=== PATIENT | female | born 1980 | race Caucasian/White ===

== ENCOUNTER 2022-03-24 16:34 | Inpatient (IN) | payer BC ==
[~2022-03-24] VITALS: Ht 162.6 cm; Wt 68.2 kg
[2022-03-24 18:11] LABS: BASOPHILS # (AUTO) 0.1 X10'3 (0-0.2); BASOPHILS % (AUTO) 1.1 % (0-1); EOSINOPHILS % (AUTO) 0.7 % (0-6); HEMATOCRIT 34.6 % (35.0-45.0); HEMOGLOBIN 11.9 g/dl (12.0-16.0); LYMPHOCYTES # (AUTO) 0.7 X10'3 (1.1-4.8); LYMPHOCYTES % (AUTO) 9.9 % (21-51); MEAN CORPUSCULAR HEMOGLOBIN 36.3 PG (27.0-31.0); MEAN CORPUSCULAR HGB CONC 34.3 g/dL (33.0-36.5); MEAN CORPUSCULAR VOLUME 105.7 FL (78-98); MEAN PLATELET VOLUME 8.9 FL (7.4-10.4); MONOCYTES # (AUTO) 0.6 X10'3 (0-0.9); MONOCYTES % (AUTO) 9.6 % (2-12); NEUTROPHILS # (AUTO) 5.2 X10'3 (1.8-7.7); NEUTROPHILS % (AUTO) 78.7 % (42-75); PLATELET COUNT 132 X10'3 (140-440); RED BLOOD COUNT 3.27 X10'6 (4.20-5.60); RED CELL DISTRIBUTION WIDTH 15.6 % (11.5-14.5); WHITE BLOOD COUNT 6.6 X10'3 (4.5-11.0)
[2022-03-24 18:27] LABS: ALANINE AMINOTRANSFERASE 104 U/L (12-78); ALBUMIN 3.1 G/DL (3.4-5.0); ALKALINE PHOSPHATASE 282 IU/L (46-116); ANION GAP 14 (8-16); ASPARTATE AMINO TRANSFERASE 197 U/L (10-37); BILIRUBIN,TOTAL 7.7 MG/DL (0.1-1.0); BLOOD UREA NITROGEN 5 MG/DL (7-18); BUN/CREATININE RATIO 6.5 (6.6-38.0); CALCIUM 8.3 MG/DL (8.5-10.1); CHLORIDE 97 MMOL/L (99-107); CREATININE 0.77 MG/DL (0.40-0.90); GLUCOSE 97 MG/DL (70-104); LIPASE 138 U/L (73-393); SODIUM 137 MMOL/L (135-145); TOTAL CARBON DIOXIDE 25.6 MMOL/L (24-32); eGFR 82 ML/MIN
[2022-03-24 18:46] LABS: ALBUMIN/GLOBULIN RATIO 0.9 (1.1-1.5); TOTAL PROTEIN 6.4 G/DL (6.4-8.2)
[2022-03-24 18:53] LABS: POTASSIUM 3.7 MMOL/L (3.5-5.1)
[2022-03-24 23:18] LABS: APTT 33 SECONDS (22-32)
[2022-03-25] MEDS ORDERED: chlordiazePOXIDE 25mg capsule PO ONE (04:10)
[2022-03-25] MEDS ORDERED: magnesium hydroxide 30ml (MOM) UD suspension PO PRN (05:15)
[2022-03-25] MEDS ORDERED: mag hydrox/Alum hydrox/simeth 30ml oral suspension PO PRN (05:15)
[2022-03-25] MEDS ORDERED: LORazepam 2 mg/ml vial IV PRN (05:15)
[2022-03-25] MEDS ORDERED: ondansetron/PF 4mg/2ml inj IV PRN (05:15)
[2022-03-25] MEDS ORDERED: acetaminophen 325mg tablet PO PRN (05:15)
[2022-03-25] MEDS: docusate sod 100mg capsule PO SCH ×2 (08:00→20:00)
[2022-03-25 08:03] LABS: CLARITY,URINE CLOUDY (Clear)
[2022-03-25 08:09] LABS: URINE HCG NEGATIVE (NEG)
[2022-03-25 08:22] LABS: COLOR,URINE Amber (Yellow); UA COLLECTION TYPE NON-SPECIFIED
[2022-03-25 08:23] LABS: SQUAMOUS EPITHELIAL CELL,UR MODERATE /LPF (FEW)
[2022-03-25 08:24] LABS: MUCUS STRANDS MANY /LPF (Neg); TRANSITIONAL EPI CELLS,URINE MODERATE /HPF
[2022-03-25 08:26] LABS: BACTERIA,URINE 1+ /HPF (Neg); RBC,URINE 0-2 /HPF (0-2)
[2022-03-25 08:27] LABS: CELLULAR CAST 0-4 /LPF (NEGATIVE)
[2022-03-25] MEDS: multivitamins, therapeutics tablet PO SCH (09:00)
[2022-03-25] MEDS: folic acid 1mg tablet PO SCH (09:01)
[2022-03-25] MEDS: spironolactone 25 MG tablet PO SCH (09:01)
[2022-03-25] MEDS: LORazepam 1 MG tablet PO PRN ×2 (09:23→12:05)
[2022-03-25] MEDS: naltrexone 50mg tablet PO SCH (09:23)
--- NOTE | 2022-03-25 10:01 | NUR ---
Attempted to give report to the ortho unit. Nurse will call back for report.
--- NOTE | 2022-03-25 10:06 | NUR ---
Report given to BHAVIK Sethi in the ortho unit.
[2022-03-25 10:54] VITALS: BP 124/81
--- NOTE | 2022-03-25 11:10 | NUR ---
Paged Angio about order for paracentesis diagnostic r/t ascites.
[2022-03-25] MEDS ORDERED: LIDOcaine 1%/PF 5ML 10 MG/ML VIAL ONE (11:14)
[2022-03-25] MEDS: pantoprazole 40mg Tablet.DR PO SCH (11:18)
[2022-03-25 11:25] VITALS: BP 124/79
[2022-03-25 11:40] VITALS: BP 130/81
[2022-03-25 13:00] LABS: GLUCOSE,BODY FLUID 101 MG/DL; LDH,BODY FLUID 77 U/L; LYMPHOCYTES,BODY FLUID 22 %; MONOCYTES,BODY FLUID 72 %; NEUTROPHILS,BODY FLUID 6 %
[2022-03-25 13:01] LABS: BF MESOTHELIAL CELLS FEW; BF RBC COUNT 129 /CU MM; BF WBC COUNT 32 /CU MM (0-1000); BFAPPEAR CLEAR; BFCOLOR YELLOW; BFVOLUME 58 ML
[2022-03-25 13:11] LABS: TOTAL PROTEIN,BODY FLUID < 2.0 G/DL
[2022-03-25] MEDS ORDERED: NO HOME MEDS (14:34)
[2022-03-25 18:00] VITALS: BP 117/83
--- NOTE | 2022-03-25 18:41 | NUR ---
Problems reprioritized. Patient report given, questions answered & plan of care reviewed with CATA Mathias.
--- NOTE | 2022-03-25 18:41 | NUR ---
Patient in room ORTH[facility] 4011. I have received report from BHAVIK Blanco and had the opportunity to ask questions and assume patient care.
[2022-03-25 22:00] VITALS: BP 113/76
[2022-03-26 06:00] VITALS: BP 120/81
--- NOTE | 2022-03-26 06:14 | NUR ---
Patient in room ORTH[facility] 4011. I have received report from BHAVKI Mathias and had the opportunity to ask questions and assume patient care.
--- NOTE | 2022-03-26 06:16 | NUR ---
Problems reprioritized. Patient report given, questions answered & plan of care reviewed with BHAVIK Blanco.
[2022-03-26 06:53] LABS: BASOPHILS % (AUTO) 1.1 % (0-1); EOSINOPHILS # (AUTO) 0.1 X10'3 (0-0.9); EOSINOPHILS % (AUTO) 1.8 % (0-6); HEMATOCRIT 29.4 % (35.0-45.0); HEMOGLOBIN 10.2 g/dl (12.0-16.0); LYMPHOCYTES # (AUTO) 0.5 X10'3 (1.1-4.8); LYMPHOCYTES % (AUTO) 11.8 % (21-51); MEAN CORPUSCULAR HEMOGLOBIN 36.6 PG (27.0-31.0); MEAN CORPUSCULAR HGB CONC 34.7 g/dL (33.0-36.5); MEAN CORPUSCULAR VOLUME 105.5 FL (78-98); MEAN PLATELET VOLUME 9.6 FL (7.4-10.4); MONOCYTES # (AUTO) 0.5 X10'3 (0-0.9); MONOCYTES % (AUTO) 10.4 % (2-12); NEUTROPHILS # (AUTO) 3.3 X10'3 (1.8-7.7); NEUTROPHILS % (AUTO) 74.9 % (42-75); PLATELET COUNT 97 X10'3 (140-440); RED BLOOD COUNT 2.79 X10'6 (4.20-5.60); RED CELL DISTRIBUTION WIDTH 15.3 % (11.5-14.5); WHITE BLOOD COUNT 4.4 X10'3 (4.5-11.0)
[2022-03-26 07:15] LABS: ALANINE AMINOTRANSFERASE 77 U/L (12-78); ALBUMIN 2.6 G/DL (3.4-5.0); ALKALINE PHOSPHATASE 220 IU/L (46-116); AMYLASE 14 U/L (25-115); ANION GAP 14 (8-16); ASPARTATE AMINO TRANSFERASE 139 U/L (10-37); BILIRUBIN,TOTAL 9.2 MG/DL (0.1-1.0); BLOOD UREA NITROGEN 5 MG/DL (7-18); BUN/CREATININE RATIO 7.4 (6.6-38.0); CALCIUM 8.2 MG/DL (8.5-10.1); CHLORIDE 98 MMOL/L (99-107); CREATININE 0.68 MG/DL (0.40-0.90); GLUCOSE 80 MG/DL (70-104); LIPASE 100 U/L (73-393); MAGNESIUM 1.6 MG/DL (1.5-2.4); SODIUM 139 MMOL/L (135-145); TOTAL CARBON DIOXIDE 26.6 MMOL/L (24-32); eGFR > 90 ML/MIN
[2022-03-26 07:18] LABS: ALBUMIN/GLOBULIN RATIO 0.8 (1.1-1.5); PHOSPHORUS 2.9 MG/DL (2.3-4.5); POTASSIUM 3.8 MMOL/L (3.5-5.1)
[2022-03-26 07:27] LABS: PLATELET ESTIMATE DECREASED
[2022-03-26 07:28] LABS: ANISOCYTOSIS 1+; STOMATOCYTES 1+
[2022-03-26] MEDS: docusate sod 100mg capsule PO SCH ×2 (08:00→19:34)
[2022-03-26] MEDS: pantoprazole 40mg Tablet.DR PO SCH (09:17)
[2022-03-26] MEDS: multivitamins, therapeutics tablet PO SCH (09:17)
[2022-03-26] MEDS: folic acid 1mg tablet PO SCH (09:17)
[2022-03-26] MEDS: naltrexone 50mg tablet PO SCH (09:18)
[2022-03-26] MEDS: spironolactone 25 MG tablet PO SCH (09:18)
[2022-03-26] MEDS: LORazepam 1 MG tablet PO PRN ×2 (09:27→19:19)
[2022-03-26 10:00] VITALS: BP 124/87
--- NOTE | 2022-03-26 11:47 | NUR ---
Malnutrition consult: Pt reports wt loss with decreased appetite per malnutrition risk screen with RN. Pt seen at bedside, reports digressing PO intake for awhile with more significant decline in PO intake the last week in January, however pt does report consuming small meals throughout the day. Pt reports UBW 140-145 lbs, current scaled wt is 150 lbs. No visible fat or muscle wasting was appreciated. Per EMR pt with no decrease in muscle strength though with 2+ mild ankle edema. Pt currently lacks a minimum of two criteria for malnutrition though at a high risk in view of EtOH hx. Food preferences were obtained and d/w dietary: no coffee or milk to drink, sub almond milk, and sherbet BIDLD. Pt reports difficulty swallowing at times if food is too big, pt declines BSS with ST at this time though agrees to chop all food, d/w dietary. RD contact information provided and pt encouraged to reach out if needed. Will continue to follow. Addendum: 03/26/22 at [address] Amended: Links added.
[2022-03-26 18:00] VITALS: BP 115/74
--- NOTE | 2022-03-26 18:30 | NUR ---
Patient in room [facility]TH[facility] 4011. I have received report from BHAVIK Holland and had the opportunity to ask questions and assume patient care.
--- NOTE | 2022-03-26 18:30 | NUR ---
Problems reprioritized. Patient report given, questions answered & plan of care reviewed with BHAVIK Carmichael.
[2022-03-26 22:00] VITALS: BP 114/74
[2022-03-27] MEDS ORDERED: LORazepam 2 mg/ml vial IV PRN (05:15)
[2022-03-27 06:00] VITALS: BP 113/76
--- NOTE | 2022-03-27 06:10 | NUR ---
received report from elodia mead
--- NOTE | 2022-03-27 06:18 | NUR ---
Problems reprioritized. Patient report given, questions answered & plan of care reviewed with BHAVIK Morrow.
[2022-03-27 07:47] LABS: BASOPHILS # (AUTO) 0.1 X10'3 (0-0.2); BASOPHILS % (AUTO) 1.4 % (0-1); EOSINOPHILS # (AUTO) 0.1 X10'3 (0-0.9); HEMOGLOBIN 10.6 g/dl (12.0-16.0); LYMPHOCYTES # (AUTO) 0.7 X10'3 (1.1-4.8); LYMPHOCYTES % (AUTO) 14.2 % (21-51); MEAN CORPUSCULAR HEMOGLOBIN 35.9 PG (27.0-31.0); MEAN CORPUSCULAR HGB CONC 34.1 g/dL (33.0-36.5); MEAN CORPUSCULAR VOLUME 105.6 FL (78-98); MEAN PLATELET VOLUME 9.5 FL (7.4-10.4); MONOCYTES # (AUTO) 0.5 X10'3 (0-0.9); MONOCYTES % (AUTO) 10.4 % (2-12); NEUTROPHILS # (AUTO) 3.4 X10'3 (1.8-7.7); PLATELET COUNT 109 X10'3 (140-440); RED BLOOD COUNT 2.94 X10'6 (4.20-5.60); RED CELL DISTRIBUTION WIDTH 15.4 % (11.5-14.5); WHITE BLOOD COUNT 4.8 X10'3 (4.5-11.0)
[2022-03-27] MEDS: docusate sod 100mg capsule PO SCH ×2 (08:00→20:00)
[2022-03-27 08:09] LABS: ALANINE AMINOTRANSFERASE 75 U/L (12-78); ALBUMIN 2.6 G/DL (3.4-5.0); ALKALINE PHOSPHATASE 208 IU/L (46-116); AMYLASE 13 U/L (25-115); ANION GAP 13 (8-16); ASPARTATE AMINO TRANSFERASE 128 U/L (10-37); BILIRUBIN,TOTAL 8.9 MG/DL (0.1-1.0); BLOOD UREA NITROGEN 3 MG/DL (7-18); BUN/CREATININE RATIO 4.8 (6.6-38.0); CHLORIDE 99 MMOL/L (99-107); CREATININE 0.62 MG/DL (0.40-0.90); GLUCOSE 86 MG/DL (70-104); LIPASE 88 U/L (73-393); MAGNESIUM 1.6 MG/DL (1.5-2.4); SODIUM 139 MMOL/L (135-145); TOTAL CARBON DIOXIDE 27.2 MMOL/L (24-32); eGFR > 90 ML/MIN
[2022-03-27 08:10] LABS: ALBUMIN/GLOBULIN RATIO 0.8 (1.1-1.5); PHOSPHORUS 2.8 MG/DL (2.3-4.5); POTASSIUM 3.4 MMOL/L (3.5-5.1)
[2022-03-27] MEDS: pantoprazole 40mg Tablet.DR PO SCH (08:14)
[2022-03-27] MEDS: multivitamins, therapeutics tablet PO SCH (08:15)
[2022-03-27] MEDS: naltrexone 50mg tablet PO SCH (08:15)
[2022-03-27] MEDS: folic acid 1mg tablet PO SCH (08:15)
[2022-03-27] MEDS: spironolactone 25 MG tablet PO SCH (08:18)
[2022-03-27] MEDS ORDERED: potassium Cl 20 mEq SR tablet PO PRN (08:30)
[2022-03-27] MEDS ORDERED: potassium Cl 40MEQ/1/2NS 520ml 520 ML IV PRN ×2 (08:30)
[2022-03-27 10:00] VITALS: BP 110/77
[2022-03-27] MEDS: potassium Cl 20 mEq SR tablet PO PRN ×3 (10:31→21:06)
[2022-03-27 18:00] VITALS: BP 116/76
--- NOTE | 2022-03-27 18:10 | NUR ---
gave report to elodia sal
--- NOTE | 2022-03-27 18:53 | NUR ---
Patient in room [facility]TH[facility] 4011. I have received report from SEBASTIAN GUTIERRES and had the opportunity to ask questions and assume patient care.
[2022-03-27] MEDS: K and/or MAG REPLACEMENT MC SCH (20:00)
[2022-03-27] MEDS: LORazepam 1 MG tablet PO PRN (21:12)
[2022-03-27 22:00] VITALS: BP 122/86
[2022-03-28 05:56] LABS: BASOPHILS % (AUTO) 0.7 % (0-1); EOSINOPHILS # (AUTO) 0.1 X10'3 (0-0.9); EOSINOPHILS % (AUTO) 2.3 % (0-6); HEMATOCRIT 31.4 % (35.0-45.0); HEMOGLOBIN 10.6 g/dl (12.0-16.0); LYMPHOCYTES # (AUTO) 0.7 X10'3 (1.1-4.8); LYMPHOCYTES % (AUTO) 14.6 % (21-51); MEAN CORPUSCULAR HGB CONC 33.8 g/dL (33.0-36.5); MEAN CORPUSCULAR VOLUME 106.3 FL (78-98); MEAN PLATELET VOLUME 9.6 FL (7.4-10.4); MONOCYTES # (AUTO) 0.5 X10'3 (0-0.9); MONOCYTES % (AUTO) 10.1 % (2-12); NEUTROPHILS # (AUTO) 3.7 X10'3 (1.8-7.7); NEUTROPHILS % (AUTO) 72.3 % (42-75); PLATELET COUNT 123 X10'3 (140-440); RED BLOOD COUNT 2.95 X10'6 (4.20-5.60); WHITE BLOOD COUNT 5.1 X10'3 (4.5-11.0)
[2022-03-28 06:04] LABS: ALANINE AMINOTRANSFERASE 74 U/L (12-78); ALBUMIN 2.6 G/DL (3.4-5.0); ALKALINE PHOSPHATASE 207 IU/L (46-116); AMYLASE 13 U/L (25-115); ANION GAP 16 (8-16); ASPARTATE AMINO TRANSFERASE 128 U/L (10-37); BILIRUBIN,TOTAL 9.4 MG/DL (0.1-1.0); BLOOD UREA NITROGEN 3 MG/DL (7-18); BUN/CREATININE RATIO 4.1 (6.6-38.0); CALCIUM 8.2 MG/DL (8.5-10.1); CHLORIDE 101 MMOL/L (99-107); CREATININE 0.74 MG/DL (0.40-0.90); GLUCOSE 83 MG/DL (70-104); LIPASE 82 U/L (73-393); MAGNESIUM 1.6 MG/DL (1.5-2.4); SODIUM 144 MMOL/L (135-145); eGFR 86 ML/MIN
[2022-03-28 06:22] LABS: ALBUMIN/GLOBULIN RATIO 0.8 (1.1-1.5); PHOSPHORUS 3.1 MG/DL (2.3-4.5); POTASSIUM 4.1 MMOL/L (3.5-5.1)
--- NOTE | 2022-03-28 06:34 | NUR ---
Problems reprioritized. Patient report given, questions answered & plan of care reviewed with CLUADETTE GUTIERRES.
[2022-03-28 07:40] VITALS: BP 108/71
[2022-03-28] MEDS: naltrexone 50mg tablet PO SCH (07:48)
[2022-03-28] MEDS: folic acid 1mg tablet PO SCH (07:49)
[2022-03-28] MEDS: multivitamins, therapeutics tablet PO SCH (07:49)
[2022-03-28] MEDS: spironolactone 25 MG tablet PO SCH (07:49)
[2022-03-28] MEDS: pantoprazole 40mg Tablet.DR PO SCH (07:49)
[2022-03-28] MEDS: K and/or MAG REPLACEMENT MC SCH (07:50)
[2022-03-28] MEDS: docusate sod 100mg capsule PO SCH (07:50)
[2022-03-28 10:00] VITALS: BP 100/64
[2022-03-28] MEDS ORDERED: LORA-269 PO (11:14)
[2022-03-28] MEDS ORDERED: FOLI1TAB27 PO (11:14)
[2022-03-28] MEDS ORDERED: MULT-25 PO (11:14)
[2022-03-28] MEDS ORDERED: NALT50TA PO (11:14)
[2022-03-28] MEDS ORDERED: SPIR25TA PO (11:14)
[2022-03-28] MEDS ORDERED: THIA50TA10 PO (11:14)
--- NOTE | 2022-03-28 11:38 | NUR ---
TC from RN stating that MD would like pt to have education regarding ESLD and EtOH. Provided pt w/ written and verbal high protein, low sodium diet ed w/ RD contact info. Advised pt to abstain or limit alcohol intake if possible. Addendum: 03/28/22 at [address] Amended: Links added.
--- NOTE | 2022-03-28 12:25 | NUR ---
Patient stable and appropriate for discharge home with . IV removed, all belongings taken from room. New RX e-scripted to preferred pharmacy. All discharge instructions and education given and reviewed with patient, all questions answered. Installer Apprentice brought patient up additional education prior to discharge.
[2022-03-29] MEDS ORDERED: LORazepam 1 MG tablet PO PRN (05:15)
[2022-03-29] MEDS ORDERED: thiamine 100mg tablet PO SCH (08:00)
== END 2022-03-28 12:15 | disposition home or self-care (01) | DRG 432 ==
LOC: ER 16:35 → ED HOLD 03-25 05:15 → ORTHO 4S 03-25 10:41
PROVIDERS: ADMIT Internal Medicine; ATTEND Family Medicine
PROC: 0W9G3ZX Drainage of Peritoneal Cavity, Percutaneous Approach, Diagnostic (ICD-10-PCS; principal; 2022-03-25)
DX: K74.60 Unspecified cirrhosis of liver (principal); K72.00 Acute and subacute hepatic failure without coma; R18.8 Other ascites; D68.4 Acquired coagulation factor deficiency; E87.6 Hypokalemia; E88.09 Other disorders of plasma-protein metabolism, not elsewhere classified; F32.A Depression, unspecified; R16.0 Hepatomegaly, not elsewhere classified; R25.1 Tremor, unspecified; R68.81 Early satiety; F10.20 Alcohol dependence, uncomplicated; F43.10 Post-traumatic stress disorder, unspecified
CPT/HCPCS: 36415; 49083; 76700; 80053; 81001; 81025; 82150; 82945; 83615; 83690; 83735; 84100; 84157; 85008; 85025; 85610; 85730; 87070; 87081; 87088; 89051; 99285; A6446; A6449; G0378; J3490